=== PATIENT | male | born 1945 | race Caucasian/White ===

== ENCOUNTER 2017-01-03 07:52 | Day surgery (SDC) | payer OTHER, MEDICARE, BC ==
[2016-12-30 16:10] VITALS: BMI 23.7
[~2017-01-03 07:52] MED LIST: LACTATED RINGERS 1,000 ML IV SCH
[2017-01-03] MEDS ORDERED: LIDOCAINE 1% 20 ML VIAL (10MG/ML) FOR IV START INTRADERMA ONE (08:06)
[2017-01-03 08:18] VITALS: TEMP 97.9
[2017-01-03] MEDS ORDERED: LACTATED RINGERS 1,000 ML IV ONE (08:32)
[2017-01-03] MEDS ORDERED: MIDAZOLAM 2 MG/2 ML VIAL ONE (08:58)
[2017-01-03] MEDS ORDERED: IOHEXOL 180 MG/ML 1 ML ML ONE (08:58)
[2017-01-03] MEDS ORDERED: TRIAMCINOLONE ACETONIDE 40 MG/ML 1 ML VIAL ONE (08:58)
[2017-01-03] MEDS ORDERED: fentaNYL (PF) 50 MCG/ML 2 ML AMP ONE (08:58)
[2017-01-03] MEDS ORDERED: BUPIVACAINE (PF) 0.5% 30 ML VIAL ONE (08:58)
[2017-01-03 09:15] VITALS: RESP 18
--- NOTE | 2017-01-03 09:15 | P.PCN ---
Date of Procedure: 01/03/17 Surgeon: Monico Cantor Pathology: none sent Condition: stable Disposition: PACU Description of Procedure: PREOPERATIVE DIAGNOSIS: 1-Bilateral sacroiliitis. 2 Lumbar DDD POSTOPERATIVE DIAGNOSIS:. 1-Bilateral sacroiliitis. 2 Lumbar DDD PROCEDURES: RIGHT Sacroiliac joint steroid injection with fluoroscopic guidance ANESTHESIA: conscious sedation EBL: Minimal. PROCEDURE INDICATIONS: This patient with a history of low back pain secondary to sacroiliitis and postlaminectomy syndrome unresponsive to conservative management. No use of blood thinners. PROCEDURE DESCRIPTION: The patient was seen and identified in the preoperative area. Risks, benefits, complications, and alternatives were discussed with the patient (including but not limited to incomplete pain relief, bleeding, infection, nerve damage, and allergies to medications), the patient agreed to proceed with the procedure and signed the consent after all questions were answered. Patient was taken to the OR and time out was completed to verify proper patient , position, laterality of pain, and allergies. Pt was placed in the prone position and a pillow was placed under the abdomen to reduce lumbar lordosis. The lumbosacral area was prepped and draped in the usual sterile fashion. Critical pause was taken. Vital signs were closely monitored during the procedure. The fluoroscopic camera was placed in contralateral oblique view and right sacroiliiac joint lower pole was identified. After local infiltration with 1% lidocaine 2 ml, Subsequently, a 22-gauge 3.5 inch spinal needle was introduced into the posteroinferior aspect of the right sacroiliac joint under direct fluoroscopic visualization. Subsequently, 4 ml of a solution of a total of 4 ml solution containing total 2 mL of 0.5% preservative-free bupivicaine mixed with 80 mg of Kenalog was injected after negative aspiration for CSF, blood, and air and negative for paresthesia. Needle was withdrawn intact. Skin was cleansed, and bandages were applied. COMPLICATIONS: None. COMMENTS: DISPOSITION / PLANS: The patient was placed in a supine position and transferred to the recovery area in a stable condition for observation and was discharged from the recovery room after meeting discharge criteria. Home discharge instructions given to the patient by the staff. The patient was reexamined prior to discharge and there were no issues; he had already noted significant (>70%) relief of his right sided low back pain. The patient will schedule a follow up procedure in 2-4 weeks.
[2017-01-03 09:41] VITALS: BP 142/83; PULSE 68
[2017-01-03] MEDS ORDERED: IV FLUID CONTINUATION 1,000 ML IV ONE (09:41)
--- NOTE | 2017-01-03 10:17 | FL ---
EXAMINATION TYPE: FL guided pain mgmt statistic DATE OF EXAM: 01/03/2017 9:08 AM FLUOROSCOPY Fluoroscopy time of 15 seconds was used during right sacroiliac joint injection. 1 image/s document/ s the procedure.
== END 2017-01-03 09:46 | disposition home or self-care (01) ==
LOC: ORPAIN 07:52
PROVIDERS: ATTEND Anesthesiology
DX: G89.29 Other chronic pain (principal); M54.5 Low back pain; M46.1 Sacroiliitis, not elsewhere classified; M51.36 Other intervertebral disc degeneration, lumbar region; M96.1 Postlaminectomy syndrome, not elsewhere classified
CPT/HCPCS: 27096; J2250; J3301; Q9965; J3010